=== PATIENT | male | born 1990 | race Caucasian/White ===

== ENCOUNTER 2022-12-08 20:13 | Emergency (ER) | payer MEDICAID, SELFPAY ==
[2022-12-08 20:20] VITALS: BP 131/79; PULSE 70; RESP 18; TEMP 37.1; O2SAT 99
--- NOTE | 2022-12-08 21:24 | ED.GENADUL_ITS ---
Discharge Plan Disposition Patient Disposition: Home Condition: Good Discharge Details Clinical Impression: Laceration of hand, left ED Provider: Ryann Fournier Discharge Instructions Instructions: Laceration (ED) Additional Instructions: Laceration closed with sutures that need to be removed in 10-12 days. Please return to the emergency department for wound assessment and suture removal. Keep wound clean, dry, covered. Monitor for signs infection including redness, warmth, drainage, increased pain, fever/chills. If you develop these or other new/worsening symptoms please seek care urgently once again. Please keep current dressing on for the next 24 hours. After that time, you may cover with sterile Band-Aid. As we discussed, thumb spica if you need to return to work and put pressure movement on this thumb, this will help to protect the wound. Tetanus was updated today. Discharge Data Discharge Date/Time-TO BE ENTERED AT DEPARTURE: 12/08/22 21:45 Medical Decision Making Patient is a pleasant RHD 32 year old male, accompanied by SO, with c/c of left hand laceration from chain saw. He was worrking on a play area for his kids when he fell with IMGuestaw and hit his hand. No other injury at the time of the incident. Unclear on tetanus, this will be updated today. He denies numbness/tingling, has been moving the hand. Washed immediately. It has been a few hours as he originially went to another ED but wait time prompted him to seek care elsewhere. On exam, patient resting comfortably. No active bleding but blood on towel he had against wound. 2+ distal pulses of the LUE. Capillary refill intact. Sensation intact in all digits. ROM intact with individual joint testing in each finger against resistance. 5cm overal linear wound, with some jagged edges, across the left thenar eminance. No FB, debris noted. Appears to be just into muscularture with no bone or tendon invovlement. Patietn and I discussed treatment options and closure options. Given depth of wound, I do not see need for imaging. It is able to be explored well and does not appear that deep. He agrees to sturue closure after discussing risks/benefits/alterantives and expected procedureal steps. Please see procedure note. Patient tolerated this well. Wound was copiously irrigated. Explored to base in bloodless field with no FB, debris or deep structure involvement noted. Closed in simple interupted fasion. 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 To keep wound safe, will brace with thumb spica although we did discuss that ideally he will avoid heavy lifting/strain on wound. Sterile dressing applied. Discussed sxs of infection and when to return. Discussed care of sutures, advised to not soak. All of his questions adn concerns were addressed, he and his are in agreement with this plan. HPI General Date/Time Provider Initiated Documentation: 12/08/22 20:24 . Limitations to Documentation: no limitations . Information obtained by: patient, family and RN notes reviewed . History of Present Illness 32 year old M presents to the emergency department with the chief complaint of laceration to left thenar eminance, described as moderate, Quality is described as burning, and is localized to the left and upper extremity. Patient reports no radiation. Patient started experiencing this hour(s) and it has been constant. Immobilization improves symptom(s), Movement worsens symptoms . Patient notes no other symptoms.. Patient did receive the following treatments prior to arrival, other (washed wound) General Stated Complaint: Laceration ALLI: 4 Review of Systems Constitutional Constitutional: Reports as per HPI, Denies chills and Denies fever(s) Musculoskeletal Musculoskeletal: Reports as per HPI Integumentary/Breasts Skin/Breast: Reports as per HPI Neurologic Neurologic: Reports as per HPI, Denies sensory deficit and Denies paresthesias PFSH All Active Problems (Updated 12/08/22 @ 21:29 by MIRTA Spencer) Laceration of hand, left (Acute) Social History Smoking/Tobacco Use Status: Current, status unknown Tobacco Type: cigarettes Smoking risk assessment performed?: Yes Alcohol Intake: current Alcohol Intake frequency: holidays/special occasions only Alcohol type: beer Substance use type: marijuana Do you feel safe at home: Yes Do you feel safe in your relationship?: Yes Exam Const General: cooperative, healthy appearing, comfortable, no acute distress and well developed Nutritional Appearance: average body habitus and well nourished Orientation: alert and awake Resp Effort & Inspection: normal respiratory effort, able to speak in complete sentences and no respiratory distress Cardio Rate: regular rate Rhythm: regular rhythm Skin Trauma: laceration Neuro General: patient alert and patient awake Cognition: normal cognition Speech: speech normal Gait: normal gait Sensory Exam: no sensory deficits noted Extrem Hand/finger images: 1. Area of laceration, about 5cm. No active bleeding. 2+ distal pulses. Sensiation is intact. Appears to be jagged at the edges consistent with mechanism but overall a linear area going obliquely across the thenaaar eminance. Sensation and movement to thumb intact as well as to other digits. STrength testing against resistance intact. No deep structure invovlement. Just into muscule but no bone or tendon involvement, no FB visualized. Does not extend to the wrist. Capillary refills intact. Psych Appearance: grossly normal and well kempt Mental Status: mental status grossly normal Speech and Movement: speech and movement normal Course Vital Signs Vital signs: Vital Signs Temperature 37.1 C 12/08/22 20:20 Pulse 70 12/08/22 20:20 Respiratory Rate 18 12/08/22 20:20 Blood Pressure 131/79 12/08/22 20:20 Pulse Oximetry 99 12/08/22 20:20 Temperature 37.1 C 12/08/22 20:20 Temperature Source Temporal Artery Scan 12/08/22 20:20 Pulse 70 12/08/22 20:20 Respiratory Rate 18 12/08/22 20:20 Respiratory Effort Normal, Non-Labored 12/08/22 20:25 Blood Pressure 131/79 12/08/22 20:20 Pulse Oximetry 99 12/08/22 20:20 Oxygen Delivery Method Room Air 12/08/22 20:20 Oxygen Flow Rate 0 12/08/22 20:20 Procedures Laceration Laceration 1: Site: hand Side (If applicable): left Size (cm): 5 Description: irregular Depth: simple, single layer Local Anesthetic: Lidocaine 1% Amount of anesthesia used (mL): 8 Pre-repair: wound explored, irrigated extensively and deep structures intact Skin layer closed with: nylon Size (cm): 4-0 Number of sutures: 7 Technique: simple, interrupted
--- NOTE | 2022-12-08 21:34 | NUR.NOTE ---
Referral to Care Management for patient to establish pcp routinely.Nursing Note:
== END 2022-12-08 21:45 | disposition home or self-care (01) ==
PROVIDERS: Emergency Provider Physician Assistant
DX: S61.012A Laceration without foreign body of left thumb without damage to nail, initial encounter (principal); Z23 Encounter for immunization; W29.3XXA Contact with powered garden and outdoor hand tools and machinery, initial encounter; Y93.H3 Activity, building and construction; Y92.014 Private driveway to single-family (private) house as the place of occurrence of the external cause; Y99.9 Unspecified external cause status
CPT/HCPCS: 12002; 90471; 99284; 99283